=== PATIENT | female | born 1970 | race American Indian/Alaskan Native ===

== ENCOUNTER 2021-11-11 18:09 | Emergency (ER) | payer MEDICAID ==
[2021-11-12 04:47] VITALS: BP 170/101
--- NOTE | 2021-11-12 06:57 | XRay Report ---
CERVICAL SPINE 4 VIEWS INDICATION / CLINICAL INFORMATION: neck pain. COMPARISON: None available. FINDINGS: VERTEBRAE: No acute fracture. No significant malalignment. DISC SPACES / FACET JOINTS:Moderate degenerative spondylosis with disc height loss and bulky anterior marginal osteophytes at C4-C5, C5-C6 and C6-C7. PARASPINAL SOFT TISSUES:No significant abnormality. ADDITIONAL FINDINGS: None. IMPRESSION: 1. Moderate degenerative spondylosis without fracture or other acute process. Signer Name: Ger Cornell MD Signed: 11/12/2021 6:53 AM Workstation Name: [id number]
--- NOTE | 2021-11-12 07:43 | Emergency Department Report ---
ED Upper Extremity Inj HPI - General Chief Complaint: Extremity Injury, Upper Stated Complaint: LT ARM PAIN Time Seen by Provider: 11/12/21 06:26 Source: patient, EMS Mode of arrival: Stretcher Limitations: No Limitations - History of Present Illness Initial Comments: 50-year-old -[place] female complaining of left-sided neck pain. Reports pain goes to her shoulder and has pain with movement and bending denies having any trauma. Denies any fever chills or neck stiffness. Denies having any chest pain MD Complaint: Injury to:: left, shoulder -: Gradual, week(s) Other Extremity Injury: Shoulder: Left Other Injuries: none Handedness: right Place: home Severity scale (0 -10): 2 Improves With: none Worsens With: none Context: other (No injuries) Associated Symptoms: neck pain. denies: weakness, numbness, suspects foreign body - Related Data Allergies Allergy/AdvReac Type Severity Reaction Status Date / Time ibuprofen AdvReac Unknown Verified 11/11/21 18:14 ED Review of Systems ROS: Stated complaint: LT ARM PAIN Other details as noted in HPI Constitutional: denies: chills, fever Eyes: denies: eye pain, eye discharge, vision change ENT: denies: ear pain, throat pain Respiratory: denies: cough, shortness of breath, wheezing Cardiovascular: denies: chest pain, palpitations Endocrine: no symptoms reported Gastrointestinal: denies: abdominal pain, nausea, diarrhea Genitourinary: denies: urgency, dysuria, discharge Musculoskeletal: denies: back pain, joint swelling, arthralgia Skin: denies: rash, lesions Neurological: denies: headache, weakness, paresthesias Psychiatric: denies: anxiety, depression Hematological/Lymphatic: denies: easy bleeding, easy bruising ED Past Medical Hx - Past Medical History Previous Medical History?: Yes ED Physical Exam - General Limitations: No Limitations General appearance: alert, in no apparent distress - Head Head exam: Present: atraumatic, normocephalic, normal inspection - Eye Eye exam: Present: normal appearance, PERRL - ENT ENT exam: Present: normal exam, normal orophraynx, mucous membranes moist - Neck Neck exam: Present: normal inspection, full ROM. Absent: tenderness, meningis mus, lymphadenopathy - Respiratory Respiratory exam: Present: normal lung sounds bilaterally. Absent: respiratory distress - Cardiovascular Cardiovascular Exam: Present: regular rate, normal rhythm. Absent: systolic murmur, diastolic murmur, rubs, gallop - GI/Abdominal GI/Abdominal exam: Present: soft, normal bowel sounds - Extremities Exam Extremities exam: Present: normal inspection, full ROM, normal capillary refill. Absent: tenderness - Back Exam Back exam: Present: normal inspection, full ROM. Absent: tenderness - Neurological Exam Neurological exam: Present: alert, oriented X3, CN II-XII intact, reflexes normal. Absent: normal gait, motor sensory deficit - Psychiatric Psychiatric exam: Present: normal affect, normal mood - Skin Skin exam: Present: warm, dry, intact, normal color. Absent: rash ED Course Vital Signs 11/11/21 11/11/21 11/12/21 18:12 19:30 04:47 Temperature 98.6 F 98.9 F Pulse Rate 80 74 77 Respiratory 18 18 18 Rate Blood Pressure 174/82 175/88 170/101 [Left] O2 Sat by Pulse 95 98 100 Oximetry Critical care attestation.: If time is entered above; I have spent that time in minutes in the direct care of this critically ill patient, excluding procedure time. ED Disposition Clinical Impression: Cervical radiculopathy Disposition: 01 HOME / SELF CARE / HOMELESS Is pt being admited?: No Does the pt Need Aspirin: No Condition: Stable Instructions: Radicular Pain, Cervical Radiculopathy Time of Disposition: 07:44
== END 2021-11-12 08:34 | disposition home or self-care (01) ==
LOC: ED 18:09
DX: M54.12 Radiculopathy, cervical region (principal); Z98.890 Other specified postprocedural states; Z88.6 Allergy status to analgesic agent; Z79.899 Other long term (current) drug therapy
CPT/HCPCS: 72040; 99283